=== PATIENT | female | born 1980 | race Caucasian/White ===

== ENCOUNTER 2018-08-19 09:37 | Day surgery (SDC) | payer OTHER ==
[~2018-08-19 09:37] MED LIST: ANTICONCEPTIVAS PO; IRON325 MG PO
== END 2018-08-19 17:49 | disposition home or self-care (01) ==
LOC: CIR.AMB 09:37 → EDBD 10:15 → CIR.AMB 17:49
DX: N93.8 Other specified abnormal uterine and vaginal bleeding (principal)